=== PATIENT | female | born 1990 | race Caucasian/White ===

== ENCOUNTER 2022-01-25 08:00 | Outpatient (CLI) | payer OTHER ==
--- NOTE | 2022-01-25 18:22 | XRAY Report ---
PROCEDURE: Knee 4 View LT INDICATIONS: LEFT KNEE PAIN TECHNIQUE: 4 views of the left knee, one view of the right knee COMPARISON: None. 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 There is particular joint space narrowing in the medial compartment. Periarticular osteophyte formation. Patellar enthesopathy. There might be a ossified lo ose bodies seen on lateral view. Soft tissues: Moderate joint effusion. Partially visualized right side shows trace arthrosis. IMPRESSION: At least moderate degenerative changes are greater than expected for age. There is a jraon nt effusion, and suspected intra-articular loose body. Consider MRI if there is further concern for i nternal derangement. Reviewed by: Mj Shaw MD on 01/25/2022 6:21 PM PDT Approved by: Mj Shaw MD on 01/25/2022 6:21 PM PDT Station ID: [id number]
== END 2022-01-25 23:59 | disposition home or self-care (01) ==
LOC: DI.WOS 08:00
PROVIDERS: ATTEND Physician Assistant Surgical
DX: M17.12 Unilateral primary osteoarthritis, left knee (principal); M25.462 Effusion, left knee